=== PATIENT | female | born 1965 | race Caucasian/White ===

== ENCOUNTER → 2019-02-01 | Emergency (ER) | payer OTHER ==
[2019-02-01 04:59] VITALS: BP 177/91; PULSE 83; TEMP 98.1; BMI 29.0
--- NOTE | 2019-02-02 15:49 | EKG ---
Test Reason : Blood Pressure : / mmHG Vent. Rate : 083 BPM Atrial Rate : 083 BPM P-R Int : 166 ms QRS Dur : 086 ms QT Int : 392 ms P-R-T Axes : 046 -19 039 degrees QTc Int : 460 ms POOR DATA QUALITY, INTERPRETATION MAY BE ADVERSELY AFFECTED NORMAL SINUS RHYTHM SEPTAL INFARCT (CITED ON OR BEFORE 04-MAY-2014) ABNORMAL ECG WHEN COMPARED WITH ECG OF 26-MAY-2018 23:43, NONSPECIFIC T WAVE ABNORMALITY NO LONGER EVIDENT IN ANTERIOR LEADS Confirmed by JACQUIE LAL MD ([id number]) on 02/02/2019 3:49:40 PM Referred By: Confirmed By:JACQUIE LAL MD
== END | disposition left against medical advice (07) ==
LOC: JER 03:49
DX: Z53.21 Procedure and treatment not carried out due to patient leaving prior to being seen by health care provider (principal)
CPT/HCPCS: 93005; 93010; 99281-25

== ENCOUNTER 2023-01-19 10:54 | Observation (INO) | payer BC ==
[2023-01-19 11:05] VITALS: BMI 28.3
[2023-01-19 12:11] LABS: BASO % 0.6 % (0-2.0); EOS % 1.6 % (0-4.5); HEMATOCRIT 39.6 % (32.4-45.2); HEMOGLOBIN 12.9 GM/dL (10.7-15.3); LYMPH % 32.2 % (8-40); MCH 27.2 pg (25.7-33.7); MCHC 32.6 g/dl (32.0-36.0); MEAN CELL VOLUME 83.4 fl (80-96); MEAN PLT VOLUME 8.3 fl (7.5-11.1); MONO % 8.2 % (3.8-10.2); NEUT % 57.4 % (42.8-82.8); PLATELET COUNT 197 10^3/uL (134-434); RBC 4.75 M/mm3 (3.60-5.2); RDW 14.3 % (11.6-15.6); WHITE BLOOD COUNT 5.3 K/mm3 (4.0-10.0)
[2023-01-19 12:41] LABS: ALBUMIN 4.1 g/dl (3.4-5.0); BLOOD UREA NITROGEN 16.4 mg/dL (7-18); CALCIUM 9.7 mg/dL (8.5-10.1)
[2023-01-19 12:44] LABS: MAGNESIUM 2.1 mg/dL (1.8-2.4); PHOSPHOROUS 3.4 mg/dL (2.5-4.9)
[2023-01-19 12:46] LABS: BILIRUBIN,TOTAL 0.7 mg/dL (0.2-1); CREATININE 0.9 mg/dL (0.55-1.3); TOT PROT 8.3 g/dl (6.4-8.2)
[2023-01-19] MEDS ORDERED: ASPIRIN 81 MG CHEWABLE TABLETS PO ONE (14:54)
[2023-01-19] MEDS ORDERED: ACETAMINOPHEN 500 MG TABLET (FP) PO ONE (14:55)
[2023-01-19] MEDS ORDERED: LIDOCAINE 5% TOPICAL PATCH TP ONE (14:55)
[2023-01-19] MEDS ORDERED: ASPIRIN 81 MG CHEWABLE TABLETS ONE (14:59)
[2023-01-19] MEDS ORDERED: ACETAMINOPHEN 325 MG TABLET (FP) ONE (14:59)
[2023-01-19] MEDS ORDERED: LIDOCAINE 5% TOPICAL PATCH ONE (15:00)
[2023-01-19 16:03] VITALS: TEMP 98.2
[2023-01-19 18:02] VITALS: BP 147/80; PULSE 59; RESP 18
[2023-01-19] MEDS ORDERED: LIDOCAINE PATCH REMOVAL MC SCH (22:00)
[2023-01-20] MEDS ORDERED: LIDOCAINE PATCH REMOVAL MC ONE (15:00)
== END 2023-01-19 17:40 | disposition home or self-care (01) ==
LOC: JER 10:54 → JERBED 14:42
PROVIDERS: ADMIT Family Medicine; ATTEND Family Medicine
DX: R07.9 Chest pain, unspecified (principal); Z88.6 Allergy status to analgesic agent; Z88.2 Allergy status to sulfonamides
CPT/HCPCS: 36415; 71045-TC-FY; 80053; 83690; 83735; 84100; 84484; 85025; 93005; 93010; 99285-25; G0378